=== PATIENT | female | born 1950 | race Caucasian/White ===

== ENCOUNTER 2017-03-16 07:06 | Emergency (ER) | payer MEDICARE ==
[~2017-03-16] VITALS: Ht 154.9 cm; Wt 108.9 kg
[~2017-03-16 07:06] MED LIST: BENADRYL25 MG PO; CATAFLAM50 MG; JANUMET 1000 MG1 TAB PO; JANUVIA100 MG PO; MEDROL DOSEPAK4 MG PO; OMEGA-31000 MG; OXYBUTYNIN5 MG PO; PANTOPRAZOLE SO40 MG PO; POTASSIUM20 MEQ; PRAMIPEXOLE DI0.5 MG PO; PRAVACHOL20 MG PO; PREDNISONE50 MG PO; SYNTHROID,LEVO75 MCG PO; TIZANIDINE HCL4 M1 PO; VESICARE10 MG
[2017-03-16] MEDS ORDERED: Synthroid,Lev100 MCG PO (07:17)
[2017-03-16] MEDS ORDERED: CELECOXIB200 M1 PO (07:17)
[2017-03-16] MEDS ORDERED: CLARITIN10 MG PO (07:32)
[2017-03-16] MEDS ORDERED: MEDROL DOSEPAK4 MG PO (07:32)
== END 2017-03-16 08:45 | disposition home or self-care (01) ==
LOC: ED 07:06
DX: L23.7 Allergic contact dermatitis due to plants, except food (principal); Z90.710 Acquired absence of both cervix and uterus; Z79.899 Other long term (current) drug therapy; Z88.6 Allergy status to analgesic agent; Z88.2 Allergy status to sulfonamides; Z88.5 Allergy status to narcotic agent

== ENCOUNTER 2017-10-03 18:40 | Emergency (ER) | payer MEDICARE ==
[~2017-10-03] VITALS: Ht 154.9 cm; Wt 90.7 kg
[~2017-10-03 18:40] MED LIST changes: +CELECOXIB200 M1 PO; +CLARITIN10 MG PO; +Synthroid,Lev100 MCG PO
[2017-10-03] MEDS ORDERED: NORCO 5-325 TA1 EACH PO (20:24)
[2017-10-03] MEDS ORDERED: CYCLOBENZAPRINE10 MG PO (20:24)
== END 2017-10-03 20:43 | disposition home or self-care (01) ==
LOC: ED 18:40
DX: M43.6 Torticollis (principal); Z88.2 Allergy status to sulfonamides; Z88.5 Allergy status to narcotic agent; Z88.6 Allergy status to analgesic agent

== ENCOUNTER → 2018-12-05 | Outpatient (CLI) | payer MEDICARE ==
[~2018-12-05] MED LIST changes: +CYCLOBENZAPRINE10 MG PO; +NORCO 5-325 TA1 EACH PO
== END | disposition home or self-care (01) ==
LOC: US 10:04
DX: R22.9 Localized swelling, mass and lump, unspecified (principal)

== ENCOUNTER 2019-09-14 08:59 | Emergency (ER) | payer MEDICARE ==
[~2019-09-14] VITALS: Wt 77.1 kg
[2019-09-14 09:30] LABS: BASO % 0.2 % (0.0-1.0); EOS # 0.4 10*3/uL (0.0-0.4); EOS % 4.4 % (1.0-4.0); HEMATOCRIT 41.4 % (37.0-47.0); HEMOGLOBIN 13.2 g/dl (12.0-16.0); LYMPH # 1.8 10*3/uL (1.3-4.4); MEAN CELL VOLUME 93.2 fl (81.0-99.0); MEAN CORPUSCULAR HGB 29.7 pg (27.0-31.0); MEAN CORPUSCULAR HGB CONC 31.9 g/dl (33.0-37.0); MEAN PLATELET VOLUME 10.3 fl (9.6-12.3); MONO # 0.6 10*3/uL (0.1-1.0); MONO % 6.5 % (3.0-9.0); NEUT # 6.9 10*3/uL (2.3-7.9); NEUT % 70.6 % (47.0-73.0); PLATELET COUNT AUTOMATED 223 10*3/uL (130-400); RED BLOOD COUNT 4.44 10*6/uL (4.10-5.10); RED CELL DISTRI WIDTH 12.6 % (0-14.5); WHITE BLOOD COUNT 9.8 10*3/uL (4.8-10.8)
[2019-09-14 09:41] LABS: ACT PARTIAL THROMBO TIME 27.8 SECONDS (20.0-32.1); INTERNATIONAL NORM RATIO 0.9 (2.0-3.5)
[2019-09-14 09:46] LABS: ALBUMIN 3.4 gm/dl (3.1-4.5); ALKALINE PHOSPHATASE 67 U/L (45-117); BUN 18 mg/dl (7-24); CHLORIDE 105 mmol/L (98-107); CREATININE 0.83 mg/dL (0.55-1.02); POTASSIUM 4.1 mmol/L (3.5-5.1); SGOT/AST 9 IU/L (3-35); SGPT/ALT 15 U/L (12-78); SODIUM 138 mmol/L (136-145); TOTAL PROTEIN 7.5 gm/dL (6.4-8.2)
[2019-09-14 09:53] LABS: TROPONIN I < 0.015 ng/ml (<0.045)
[2019-09-14] MEDS ORDERED: CELECOXIB200 M1 PO (11:22)
[2019-09-14] MEDS ORDERED: CYCLOBENZAPRINE5 M3 PO (11:41)
== END 2019-09-14 10:25 | disposition home or self-care (01) ==
LOC: ED 08:59
PROVIDERS: Emergency Medicine
DX: M25.511 Pain in right shoulder (principal); R26.89 Other abnormalities of gait and mobility; E03.9 Hypothyroidism, unspecified; E11.9 Type 2 diabetes mellitus without complications; J44.9 Chronic obstructive pulmonary disease, unspecified; M19.90 Unspecified osteoarthritis, unspecified site; E66.9 Obesity, unspecified; Z79.899 Other long term (current) drug therapy; Z88.8 Allergy status to other drugs, medicaments and biological substances; Z88.2 Allergy status to sulfonamides; Z91.048 Other nonmedicinal substance allergy status; Z88.5 Allergy status to narcotic agent; Z90.710 Acquired absence of both cervix and uterus; Z98.890 Other specified postprocedural states; Z87.891 Personal history of nicotine dependence

== ENCOUNTER 2020-03-05 17:33 | Emergency (ER) | payer MEDICARE ==
[~2020-03-05] VITALS: Ht 154.9 cm; Wt 102.1 kg
[2020-03-05 19:14] LABS: BASO % 0.2 % (0.0-1.0); EOS # 0.3 10*3/uL (0.0-0.4); EOS % 3.7 % (1.0-4.0); HEMATOCRIT 40.1 % (37.0-47.0); LYMPH # 1.6 10*3/uL (1.3-4.4); LYMPH % 19.5 % (27.0-41.0); MEAN CORPUSCULAR HGB 28.9 pg (27.0-31.0); MEAN CORPUSCULAR HGB CONC 31.4 g/dl (33.0-37.0); MEAN PLATELET VOLUME 9.5 fl (9.6-12.3); MONO # 0.6 10*3/uL (0.1-1.0); MONO % 6.7 % (3.0-9.0); NEUT # 5.8 10*3/uL (2.3-7.9); NEUT % 69.7 % (47.0-73.0); PLATELET COUNT AUTOMATED 233 10*3/uL (130-400); RED BLOOD COUNT 4.36 10*6/uL (4.10-5.10); RED CELL DISTRI WIDTH 12.8 % (0-14.5); WHITE BLOOD COUNT 8.3 10*3/uL (4.8-10.8)
[2020-03-05 19:31] LABS: INTERNATIONAL NORM RATIO 0.9 (2.0-3.5)
[2020-03-05 19:38] LABS: ALBUMIN 3.5 gm/dl (3.1-4.5); ALKALINE PHOSPHATASE 69 U/L (45-117); BUN 15 mg/dl (7-24); CHLORIDE 106 mmol/L (98-107); CREATININE 1.05 mg/dL (0.55-1.02); POTASSIUM 4.4 mmol/L (3.5-5.1); SGOT/AST 11 IU/L (3-35); SGPT/ALT 19 U/L (12-78); SODIUM 138 mmol/L (136-145); TOTAL PROTEIN 7.8 gm/dL (6.4-8.2)
== END 2020-03-05 23:37 | disposition home or self-care (01) ==
LOC: ED 17:33
PROVIDERS: Physician Assistant
DX: M79.89 Other specified soft tissue disorders (principal); E11.9 Type 2 diabetes mellitus without complications; Z79.899 Other long term (current) drug therapy; Z87.891 Personal history of nicotine dependence

== ENCOUNTER → 2020-03-05 | Outpatient (CLI) | payer MEDICARE ==
[~2020-03-05] MED LIST changes: +CYCLOBENZAPRINE5 M3 PO
== END | disposition home or self-care (01) ==
LOC: CT 08:00
DX: K76.0 Fatty (change of) liver, not elsewhere classified (principal)

== ENCOUNTER → 2020-10-10 | Outpatient (CLI) | payer MEDICARE | END | disposition home or self-care (01) | LOC: RAD 08:10 | PROVIDERS: ATTEND Nurse Practitioner Family | DX: M25.551 Pain in right hip (principal) ==

== ENCOUNTER → 2021-03-05 | Outpatient (CLI) | payer MEDICARE ==
[~2021-03-05] MED LIST changes: +ASPIRIN CHILDRE81 MG PO; +JANUMET XR 50-1 EAC1 PO; +PREDNISONE10 MG PO; +STIOLTO RESPIMAT4 GM IH; +VENT7GM INH
== END | disposition home or self-care (01) ==
LOC: US 12:28
PROVIDERS: ATTEND Nurse Practitioner Family
DX: M77.32 Calcaneal spur, left foot (principal); M77.8 Other enthesopathies, not elsewhere classified; R60.0 Localized edema

== ENCOUNTER 2021-03-20 15:28 | Inpatient (IN) | payer MEDICARE ==
[~2021-03-20] VITALS: Ht 154.9 cm; Wt 104.9 kg
[~2021-03-20 15:28] MED LIST changes: -ASPIRIN CHILDRE81 MG PO; -JANUMET XR 50-1 EAC1 PO; -PREDNISONE10 MG PO; -STIOLTO RESPIMAT4 GM IH; -VENT7GM INH
[2021-03-20 15:52] VITALS: BP 158/93
[2021-03-20 18:01] LABS: BASO % 0.3 % (0.0-1.0); EOS # 0.3 10*3/uL (0.0-0.4); EOS % 2.3 % (1.0-4.0); HEMATOCRIT 42.7 % (37.0-47.0); LYMPH # 2.1 10*3/uL (1.3-4.4); LYMPH % 18.3 % (27.0-41.0); MEAN CORPUSCULAR HGB CONC 31.9 g/dl (33.0-37.0); MEAN PLATELET VOLUME 9.6 fl (9.6-12.3); MONO # 0.8 10*3/uL (0.1-1.0); MONO % 6.8 % (3.0-9.0); NEUT # 8.2 10*3/uL (2.3-7.9); PLATELET COUNT AUTOMATED 286 10*3/uL (130-400); RED BLOOD COUNT 4.69 10*6/uL (4.10-5.10); RED CELL DISTRI WIDTH 13.1 % (0-14.5); WHITE BLOOD COUNT 11.4 10*3/uL (4.8-10.8)
[2021-03-20 18:18] LABS: ALBUMIN 3.8 gm/dl (3.1-4.5); ALKALINE PHOSPHATASE 73 U/L (45-117); BUN 15 mg/dl (7-24); CHLORIDE 102 mmol/L (98-107); CREATININE 0.87 mg/dL (0.55-1.02); POTASSIUM 3.9 mmol/L (3.5-5.1); SGOT/AST 16 IU/L (3-35); SGPT/ALT 24 U/L (12-78); SODIUM 137 mmol/L (136-145); TOTAL PROTEIN 8.5 gm/dL (6.4-8.2); URIC ACID 5.4 mg/dL (2.6-6.0)
[2021-03-20 20:00] VITALS: BP 142/75
[2021-03-20 20:26] VITALS: BP 140/99
[2021-03-20] MEDS ORDERED: JANUMET XR 50-1 EAC1 PO (20:46)
[2021-03-20] MEDS ORDERED: ASPIRIN CHILDRE81 MG PO (20:48)
[2021-03-20] MEDS ORDERED: STIOLTO RESPIMAT4 GM IH (20:52)
[2021-03-20] MEDS ORDERED: VENT7GM INH (20:54)
[2021-03-21] VITALS: BP 137/81
[2021-03-21 06:12] LABS: BUN 15 mg/dl (7-24); CHLORIDE 100 mmol/L (98-107); CREATININE 0.79 mg/dL (0.55-1.02); POTASSIUM 3.8 mmol/L (3.5-5.1); SODIUM 138 mmol/L (136-145)
[2021-03-21 06:27] LABS: BASO % 0.3 % (0.0-1.0); EOS # 0.3 10*3/uL (0.0-0.4); EOS % 2.8 % (1.0-4.0); HEMATOCRIT 40.6 % (37.0-47.0); LYMPH # 1.9 10*3/uL (1.3-4.4); LYMPH % 21.5 % (27.0-41.0); MEAN CELL VOLUME 91.9 fl (81.0-99.0); MEAN CORPUSCULAR HGB 28.5 pg (27.0-31.0); MEAN PLATELET VOLUME 10.3 fl (9.6-12.3); MONO # 0.8 10*3/uL (0.1-1.0); MONO % 9.2 % (3.0-9.0); NEUT # 5.9 10*3/uL (2.3-7.9); NEUT % 65.9 % (47.0-73.0); PLATELET COUNT AUTOMATED 277 10*3/uL (130-400); RED BLOOD COUNT 4.42 10*6/uL (4.10-5.10); RED CELL DISTRI WIDTH 13.2 % (0-14.5)
[2021-03-21 08:00] VITALS: BP 143/59
[2021-03-21 12:00] VITALS: BP 154/73
[2021-03-21 16:00] VITALS: BP 143/73
[2021-03-21 20:00] VITALS: BP 128/71
[2021-03-22] VITALS: BP 129/75
[2021-03-22 06:03] LABS: BASO % 0.1 % (0.0-1.0); HEMATOCRIT 42.9 % (37.0-47.0); LYMPH # 0.7 10*3/uL (1.3-4.4); MEAN CELL VOLUME 90.9 fl (81.0-99.0); MEAN CORPUSCULAR HGB 28.4 pg (27.0-31.0); MEAN CORPUSCULAR HGB CONC 31.2 g/dl (33.0-37.0); MEAN PLATELET VOLUME 10.4 fl (9.6-12.3); MONO # 0.3 10*3/uL (0.1-1.0); MONO % 2.8 % (3.0-9.0); NEUT # 8.3 10*3/uL (2.3-7.9); NEUT % 88.8 % (47.0-73.0); PLATELET COUNT AUTOMATED 295 10*3/uL (130-400); RED BLOOD COUNT 4.72 10*6/uL (4.10-5.10); RED CELL DISTRI WIDTH 12.9 % (0-14.5); WHITE BLOOD COUNT 9.3 10*3/uL (4.8-10.8)
[2021-03-22 08:00] VITALS: BP 133/79
[2021-03-22 12:00] VITALS: BP 158/58
[2021-03-22 16:00] VITALS: BP 123/56
[2021-03-22 20:00] VITALS: BP 124/98
[2021-03-23] VITALS: BP 133/82
[2021-03-23 08:00] VITALS: BP 135/58
[2021-03-23 12:00] VITALS: BP 143/66
[2021-03-23] MEDS ORDERED: PREDNISONE10 MG PO (12:52)
== END 2021-03-23 13:48 | disposition home or self-care (01) | DRG 556 ==
LOC: ED 15:28 → EDHOLD 17:58 → 4E 19:22
PROVIDERS: Student in an Organized Health Care Education/Training Program; ADMIT Family Medicine; ATTEND Family Medicine
DX: M79.89 Other specified soft tissue disorders (principal); L03.116 Cellulitis of left lower limb; R26.2 Difficulty in walking, not elsewhere classified; E03.9 Hypothyroidism, unspecified; M10.9 Gout, unspecified; E11.65 Type 2 diabetes mellitus with hyperglycemia; X58.XXXA Exposure to other specified factors, initial encounter; J44.9 Chronic obstructive pulmonary disease, unspecified; M19.90 Unspecified osteoarthritis, unspecified site; Z90.710 Acquired absence of both cervix and uterus; Z88.2 Allergy status to sulfonamides; Z88.5 Allergy status to narcotic agent; Z88.6 Allergy status to analgesic agent; Z88.8 Allergy status to other drugs, medicaments and biological substances; Z79.899 Other long term (current) drug therapy; Y93.89 Activity, other specified; Y92.89 Other specified places as the place of occurrence of the external cause; Y99.8 Other external cause status; Z79.82 Long term (current) use of aspirin

== ENCOUNTER 2021-10-10 06:54 | Emergency (ER) | payer MEDICARE ==
[~2021-10-10 06:54] MED LIST changes: +ASPIRIN CHILDRE81 MG PO; +JANUMET XR 50-1 EAC1 PO; +PREDNISONE10 MG PO; +STIOLTO RESPIMAT4 GM IH; +VENT7GM INH
[2021-10-10 07:21] LABS: BASO % 0.2 % (0.0-1.0); EOS # 0.2 10*3/uL (0.0-0.4); EOS % 2.9 % (1.0-4.0); HEMATOCRIT 40.2 % (37.0-47.0); LYMPH # 1.8 10*3/uL (1.3-4.4); LYMPH % 21.8 % (27.0-41.0); MEAN CELL VOLUME 90.1 fl (81.0-99.0); MEAN CORPUSCULAR HGB 28.9 pg (27.0-31.0); MEAN CORPUSCULAR HGB CONC 32.1 g/dl (33.0-37.0); MEAN PLATELET VOLUME 9.7 fl (9.6-12.3); MONO # 0.7 10*3/uL (0.1-1.0); MONO % 8.8 % (3.0-9.0); NEUT # 5.5 10*3/uL (2.3-7.9); NEUT % 66.1 % (47.0-73.0); PLATELET COUNT AUTOMATED 260 10*3/uL (130-400); RED BLOOD COUNT 4.46 10*6/uL (4.10-5.10); RED CELL DISTRI WIDTH 13.1 % (0-14.5); WHITE BLOOD COUNT 8.4 10*3/uL (4.8-10.8)
[2021-10-10 07:33] LABS: ACT PARTIAL THROMBO TIME 29.5 SECONDS (20.0-32.1)
[2021-10-10 07:41] LABS: ALKALINE PHOSPHATASE 58 U/L (45-117); BUN 16 mg/dl (7-24); CHLORIDE 103 mmol/L (98-107); CREATININE 0.88 mg/dL (0.55-1.02); POTASSIUM 3.8 mmol/L (3.5-5.1); SGOT/AST 13 IU/L (3-35); SGPT/ALT 22 U/L (12-78); SODIUM 137 mmol/L (136-145); TOTAL PROTEIN 7.8 gm/dL (6.4-8.2)
== END 2021-10-10 10:24 | disposition home or self-care (01) ==
LOC: ED 06:54
PROVIDERS: Student in an Organized Health Care Education/Training Program
DX: M94.0 Chondrocostal junction syndrome [Tietze] (principal); R09.1 Pleurisy; Z88.6 Allergy status to analgesic agent; Z88.2 Allergy status to sulfonamides; Z79.899 Other long term (current) drug therapy; Z79.82 Long term (current) use of aspirin; Z90.710 Acquired absence of both cervix and uterus

== ENCOUNTER 2022-11-13 08:01 | Emergency (ER) | payer MEDICARE ==
[~2022-11-13] VITALS: Ht 154.9 cm; Wt 103.4 kg
[2022-11-13] MEDS ORDERED: HYDROCHLOROTHIA25 M1 PO (08:08)
[2022-11-13] MEDS ORDERED: VITAMIN D310 MC3 PO (08:08)
[2022-11-13] MEDS ORDERED: OMEPRAZOLE40 MG PO (08:08)
[2022-11-13] MEDS ORDERED: OXYBUTYNIN5 MG PO (08:09)
[2022-11-13] MEDS ORDERED: CEPHALEXIN500 M1 PO (09:44)
== END 2022-11-13 09:44 | disposition home or self-care (01) ==
LOC: ED 08:01
DX: L03.115 Cellulitis of right lower limb (principal); Z88.2 Allergy status to sulfonamides; Z88.5 Allergy status to narcotic agent; Z88.8 Allergy status to other drugs, medicaments and biological substances; Z90.710 Acquired absence of both cervix and uterus; Z98.890 Other specified postprocedural states

== ENCOUNTER → 2023-06-08 | Outpatient (CLI) | payer MEDICARE ==
[~2023-06-08] MED LIST changes: +CEPHALEXIN500 M1 PO; +HYDROCHLOROTHIA25 M1 PO; +OMEPRAZOLE40 MG PO; +VITAMIN D310 MC3 PO
== END | disposition home or self-care (01) ==
LOC: CARD 01:06
PROVIDERS: ATTEND Nurse Practitioner Primary Care
DX: R60.9 Edema, unspecified (principal); R63.5 Abnormal weight gain; Z79.899 Other long term (current) drug therapy

== ENCOUNTER 2023-10-24 14:57 | Emergency (ER) | payer MEDICARE ==
[~2023-10-24] VITALS: Ht 154.9 cm; Wt 101.6 kg
[2023-10-24] MEDS ORDERED: Albuterol Sulf/Ipratropium 3 ML VIAL NEB ONE (15:40)
[2023-10-24] MEDS ORDERED: FUROSEMIDE 40 MG/4 ML VIAL IV ONE (15:40)
[2023-10-24] MEDS ORDERED: methylPREDNISolone sod succ 125 MG VIAL IV ONE (15:40)
[2023-10-24 15:43] LABS: BASO % 0.3 % (0.0-1.0); EOS # 0.7 10*3/uL (0.0-0.4); EOS % 7.7 % (1.0-4.0); HEMATOCRIT 39.2 % (37.0-47.0); LYMPH # 2.1 10*3/uL (1.3-4.4); LYMPH % 22.7 % (27.0-41.0); MEAN CELL VOLUME 92.5 fl (81.0-99.0); MEAN CORPUSCULAR HGB 27.8 pg (27.0-31.0); MEAN CORPUSCULAR HGB CONC 30.1 g/dl (33.0-37.0); MEAN PLATELET VOLUME 9.5 fl (9.6-12.3); MONO # 0.6 10*3/uL (0.1-1.0); MONO % 6.1 % (3.0-9.0); NEUT # 5.9 10*3/uL (2.3-7.9); NEUT % 62.9 % (47.0-73.0); PLATELET COUNT AUTOMATED 277 10*3/uL (130-400); RED BLOOD COUNT 4.24 10*6/uL (4.10-5.10); RED CELL DISTRI WIDTH 13.8 % (0-14.5); WHITE BLOOD COUNT 9.3 10*3/uL (4.8-10.8)
[2023-10-24 15:58] LABS: ACT PARTIAL THROMBO TIME 30.2 SECONDS (20.0-32.1)
[2023-10-24 16:04] LABS: ALKALINE PHOSPHATASE 67 U/L (46-116); BUN 15 mg/dl (9-23); CHLORIDE 102 mmol/L (98-107); POTASSIUM 3.9 mmol/L (3.4-5.1); SGPT/ALT 11 U/L (5-49); TOTAL PROTEIN 7.5 gm/dL (6.0-8.0)
[2023-10-24] MEDS ORDERED: AVPAK AZITHROM250 MG PO (16:54)
[2023-10-24] MEDS ORDERED: PREDNISONE10 MG PO (16:54)
== END 2023-10-24 17:13 | disposition home or self-care (01) ==
LOC: ED 14:57
PROVIDERS: Physician Assistant Medical
DX: J44.1 Chronic obstructive pulmonary disease with (acute) exacerbation (principal); E11.9 Type 2 diabetes mellitus without complications; E03.9 Hypothyroidism, unspecified; I10 Essential (primary) hypertension; Z88.2 Allergy status to sulfonamides; Z88.5 Allergy status to narcotic agent; Z88.8 Allergy status to other drugs, medicaments and biological substances; Z90.710 Acquired absence of both cervix and uterus; Z98.890 Other specified postprocedural states

== ENCOUNTER 2024-07-26 08:51 | Emergency (ER) | payer MEDICARE ==
[~2024-07-26] VITALS: Ht 154.9 cm; Wt 99.8 kg
[~2024-07-26 08:51] MED LIST changes: +AVPAK AZITHROM250 MG PO
[2024-07-26] MEDS ORDERED: CLINDAMYCIN HCL 300 MG CAPSULE PO ONE (09:10)
[2024-07-26] MEDS ORDERED: CLINDAMYCIN HC300 MG PO (09:13)
== END 2024-07-26 09:22 | disposition home or self-care (01) ==
LOC: ED 08:51
DX: L03.012 Cellulitis of left finger (principal); J44.9 Chronic obstructive pulmonary disease, unspecified; E11.9 Type 2 diabetes mellitus without complications; M19.90 Unspecified osteoarthritis, unspecified site; I10 Essential (primary) hypertension; E03.9 Hypothyroidism, unspecified; Z88.8 Allergy status to other drugs, medicaments and biological substances; Z88.5 Allergy status to narcotic agent; Z88.2 Allergy status to sulfonamides; Z91.048 Other nonmedicinal substance allergy status; Z90.710 Acquired absence of both cervix and uterus; Z98.890 Other specified postprocedural states